=== PATIENT | male | born 1980 | race Two or more races ===

== ENCOUNTER 2020-01-09 09:25 | Emergency (ER) | payer SELFPAY ==
[~2020-01-09] VITALS: Ht 182.9 cm; Wt 70.3 kg
--- NOTE | 2020-01-09 09:25 | NUR ---
ED Nurse Note: PT arrived with RA [id number] due left flank pain starting yesterday. pt states that he has hx of kindey stones. last occurence was last year. pt flank tender to touch no deformities noticed skin intact. pt iv site etablished, patent and intact. pt groaning and presenting with facial grimacing and grabbing site pain 06/01
[2020-01-09 09:27] VITALS: BP 114/74
[2020-01-09] MEDS ORDERED: Ketorolac 30mg Inj IV ONE (09:30)
[2020-01-09] MEDS ORDERED: Morphine Sulfate 4mg/ml Inj (IV USE ONLY) IVP ONE (09:30)
--- NOTE | 2020-01-09 09:30 | NUR ---
ED Nurse Note: Pt states that the he had "dark red blood" come from urine earlier today. pt is unable to urinate at this time. medications administered pain now looks comfortable. offered blankets and dimmed lights samaria pt comfort.
--- NOTE | 2020-01-09 09:45 | NUR ---
ED Nurse Note: Pt reports decreased pain at this time.
--- NOTE | 2020-01-09 09:47 | Emergency Room Report ---
History of Present Illness General Chief Complaint: Back Pain-No Injury Source: Patient, EMS Present Illness HPI 39-year-old male presents to ED with left flank pain. Brought in by EMS from hotel. History of kidney stones. Started today. 10 out of 10, throbbing, nonradiating. Notes nausea and vomiting. Denies fevers or chills. Denies no other aggravating relieving factors. Denies any other associated symptoms Allergies: Coded Allergies: No Known Allergies (Unverified , 01/09/20) COVID-19 Screening Contact w/high risk pt: No Recent Travel to affected area: No Experienced COVID-19 symptoms?: No COVID-19 Testing performed TERRITORY SALES CONSULTANT: No Patient History Past Medical History: none Past Surgical History: none Pertinent Family History: none Social History: Denies: smoking, alcohol use, drug use Immunizations: UTD Reviewed Nursing Documentation: PMH: Agreed; PSxH: Agreed Nursing Documentation-PMH Past Medical History: No History, Except For Review of Systems All Other Systems: negative except mentioned in HPI Physical Exam Vital Signs Date Time Temp Pulse Resp B/P (MAP) Pulse Ox O2 Delivery O2 Flow Rate FiO2 01/09/20 09:20 98.2 82 18 114/74 (87) 99 Room Air Sp02 EP Interpretation: reviewed, normal General Appearance: alert, GCS 15, non-toxic, mild distress Head: normocephalic, atraumatic Eyes: bilateral eye normal inspection, bilateral eye PERRL ENT: hearing grossly normal, normal pharynx, no angioedema, normal voice Neck: full range of motion, supple/symm/no masses Respiratory: chest non-tender, lungs clear, normal breath sounds, speaking full sentences Cardiovascular #1: regular rate, rhythm, no edema Cardiovascular #2: 2+ carotid (R), 2+ carotid (L), 2+ radial (R), 2+ radial (L) , 2+ dorsalis pedis (R), 2+ dorsalis pedis (L) Gastrointestinal: normal bowel sounds, non tender, soft, non-distended, no guarding, no rebound Rectal: deferred Genitourinary: normal inspection, CVA tenderness (L) Musculoskeletal: back normal, normal range of motion, gait/station normal, non- tender Neurologic: alert, motor strength/tone normal, oriented x3, sensory intact, responsive, speech normal Psychiatric: judgement/insight normal, memory normal, mood/affect normal, no suicidal/homicidal ideation Reflexes: 3+ bicep (R), 3+ bicep (L), 3+ tricep (R), 3+ tricep (L), 3+ knee (R) , 3+ knee (L) Skin: no rash Lymphatic: no adenopathy Medical Decision Making Diagnostic Impression: Primary Impression: Kidney stone Additional Impression: UTI (urinary tract infection) Qualified Codes: N10 - Acute pyelonephritis ER Course Hospital Course 39-year-old M presents to ED with L flank pain Differential diagnosis includes-appendicitis, cholecystitis, kidney stone, pyelonephritis Clinical course Patient placed on stretcher. After initial history and physical I ordered labs , IV fluids, pain medications and CT scan Labs - no leukocytosis, electrolytes ok, LFTs normal, UA - hematuria, + bacteria CT scan shows 2 mm stone in L ureter without hydronephrisis/hydroureter Upon reassessment, patient states pain has improved. I discussed findings with patient. Febrile. Nontoxic-appearing. No leukocytosis. No hydronephrosis on CT. Kidney function within normal limits. Given antibiotics here. Will discharge home. States he lives in [place] and has a urologist there. States he will follow- up with him. Safe for discharge and close outpatient follow-up I feel this is a highly complex case requiring extensive working including EKG/ Rhythm strip, Xray/CT/US, Blood/urine lab work, repeat exams while in ED, and administration of strong opiates/narcotics for pain control, admission to hospital or close patient follow up. Diagnosis - kidney stone, UTI Stable and discharged to home with Rx Motrin, Dell, Flomax, zofran, Keflex. Followup with PMD/urology. Return to ED if symptoms recur or worsen Labs Test 01/09/20 09:30 01/09/20 10:57 White Blood Count 5.5 K/UL (4.8-10.8) Red Blood Count 5.75 M/UL (4.70-6.10) Hemoglobin 16.0 G/DL (14.2-18.0) Hematocrit 46.1 % (42.0-52.0) Mean Corpuscular Volume 80 FL (80-99) Mean Corpuscular Hemoglobin 27.7 PG (27.0-31.0) Mean Corpuscular Hemoglobin Concent 34.6 G/DL (32.0-36.0) Red Cell Distribution Width 12.1 % (11.6-14.8) Platelet Count 243 K/UL (150-450) Mean Platelet Volume 4.9 FL (6.5-10.1) Neutrophils (%) (Auto) 66.1 % (45.0-75.0) Lymphocytes (%) (Auto) 23.7 % (20.0-45.0) Monocytes (%) (Auto) 9.0 % (1.0-10.0) Eosinophils (%) (Auto) 0.4 % (0.0-3.0) Basophils (%) (Auto) 0.8 % (0.0-2.0) Sodium Level 140 MMOL/L (136-145) Potassium Level 3.9 MMOL/L (3.5-5.1) Chloride Level 103 MMOL/L (98-107) Carbon Dioxide Level 28 MMOL/L (21-32) Anion Gap 9 mmol/L (5-15) Blood Urea Nitrogen 13 mg/dL (7-18) Creatinine 1.3 MG/DL (0.55-1.30) Estimat Glomerular Filtration Rate > 60 mL/min (>60) Glucose Level 116 MG/DL (74-106) Calcium Level 8.9 MG/DL (8.5-10.1) Total Bilirubin 0.5 MG/DL (0.2-1.0) Aspartate Amino Transf (AST/SGOT) 25 U/L (15-37) Alanine Aminotransferase (ALT/SGPT) 27 U/L (12-78) Alkaline Phosphatase 74 U/L (46-116) Total Protein 8.0 G/DL (6.4-8.2) Albumin 4.0 G/DL (3.4-5.0) Globulin 4.0 g/dL Albumin/Globulin Ratio 1.0 (1.0-2.7) Lipase 126 U/L (73-393) Urine Color Brown Urine Appearance Very cloudy Urine pH 7 (4.5-8.0) Urine Specific [place] 1.020 (1.005-1.035) Urine Protein 3+ (NEGATIVE) Urine Glucose (UA) Negative (NEGATIVE) Urine Ketones 3+ (NEGATIVE) Urine Blood 5+ (NEGATIVE) Urine Nitrite Positive (NEGATIVE) Urine Bilirubin 1+ (NEGATIVE) Urine Ictotest Negative (NEGATIVE) Urine Urobilinogen 4 MG/DL (0.0-1.0) Urine Leukocyte Esterase 3+ (NEGATIVE) Urine RBC Tntc /HPF (0 - 0) Urine WBC Tntc /HPF (0 - 0) Urine Squamous Epithelial Cells Occasional /LPF Urine Bacteria Few /HPF (NONE) CT/MRI/US Diagnostic Results CT/MRI/US Diagnostic Results : Imaging Test Ordered: CT A/P Impression Procedure: CT Abdomen Pelvis WO Contrast EXAM: CT CT Abdomen Pelvis WO Contrast INDICATION: Flank pain. COMPARISON: None TECHNIQUE: Axial images were obtained through the abdomen pelvis without intravenous contrast. Sagittal and coronal reformats are generated. All CT scans at this facility are performed using dose modulation techniques as appropriate to a performed exam including the following: automated exposure control with adjustment of the mA and/or kV according to patient size. RADIATION DOSE: CTDIvol: 5.3 mGy DLP: 291.8 mGy-cm Dose information generated by the CT scanner is available in PACS. FINDINGS: There is minimal dependent atelectasis right lung base. The liver and spleen are homogeneous. Gallbladder is without sludge or stone and there is no wall thickening. The pancreas is unremarkable. Adrenals are normal in morphology. There is slight fullness of the left collecting system. Small bowel loops are nondistended. The colon is also nondistended with average amount of stool. The appendix is not visualized. There is no free fluid or free air. No pathologic adenopathy demonstrated. Urinary bladder is almost empty. In the left hemipelvis on image 139, there is a tiny 2 mm calcific density which lies along the expected course of the distal left ureter. Question possible tiny distal ureteral stone.. There is no suspicious superficial soft tissue or osseous abnormality. IMPRESSION: MILD FULLNESS OF THE LEFT COLLECTING SYSTEM. TINY 2 MM CALCIFIC DENSITY IN THE LEFT HEMIPELVIS POSSIBLY A TINY LEFT DISTAL URETERAL STONE. Last Vital Signs Date Time Temp Pulse Resp B/P (MAP) Pulse Ox O2 Delivery O2 Flow Rate FiO2 01/09/20 09:27 98.2 82 18 114/74 99 Room Air Status: improved Disposition: HOME, SELF-CARE Condition: Stable Scripts Tamsulosin HCl (Flomax) 0.4 Mg Cap.er.24h 0.4 MG ORAL DAILY, #10 CAP Prov: Gregorio Ro MD 01/09/20 Cephalexin* (KEFLEX*) 500 Mg Capsule 500 MG ORAL EVERY 6 HOURS for 7 Days, CAP Prov: Gregorio Ro MD 01/09/20 Ondansetron Odt* (ZOFRAN ODT*) 4 Mg Tab.rapdis 4 MG BC EVERY 6 HOURS PRN for Nausea & Vomiting, #30 TAB 0 Refills Prov: Gregorio Ro MD 01/09/20 Hydrocodone Bit/Acetaminophen 5-325* (NORCO 5-325 TABLET*) 1 Each Tablet 1 TAB ORAL Q6H PRN for FOR PAIN, #10 TAB 0 Refills Prov: Gregorio Ro MD 01/09/20 Ibuprofen* (MOTRIN*) 600 Mg Tablet 600 MG ORAL Q8H PRN for FOR PAIN, #30 TAB 0 Refills Prov: Gregorio Ro MD 01/09/20 Gregorio Ro MD January 09, 2020 09:47
[2020-01-09 09:51] LABS: ANION GAP 9 mmol/L (5-15); BLOOD UREA NITROGEN 13 mg/dL (7-18); CALCIUM 8.9 MG/DL (8.5-10.1); CARBON DIOXIDE 28 MMOL/L (21-32); CHLORIDE 103 MMOL/L (98-107); CREATININE 1.3 MG/DL (0.55-1.30); POTASSIUM 3.9 MMOL/L (3.5-5.1); SODIUM 140 MMOL/L (136-145)
[2020-01-09 09:55] LABS: ALANINE AMINOTRANSFERASE 27 U/L (12-78); ALKALINE PHOSPHATASE 74 U/L (46-116); ASPARTATE AMINO TRANSFERASE 25 U/L (15-37); BILIRUBIN,TOTAL 0.5 MG/DL (0.2-1.0)
--- NOTE | 2020-01-09 09:55 | NUR ---
ED Nurse Note: Pt taken to CT on [facility] with product safety technical assistant
[2020-01-09 09:56] LABS: BASOPHILS % (AUTO) 0.8 % (0.0-2.0); EOSINOPHILS % (AUTO) 0.4 % (0.0-3.0); HEMATOCRIT 46.1 % (42.0-52.0); LYMPHOCYTES % (AUTO) 23.7 % (20.0-45.0); MEAN CORPUSCULAR VOLUME 80 FL (80-99); NEUTROPHILS % (AUTO) 66.1 % (45.0-75.0); PLATELET COUNT 243 K/UL (150-450); RED BLOOD COUNT 5.75 M/UL (4.70-6.10); RED CELL DISTRIBUTION WIDTH 12.1 % (11.6-14.8); WHITE BLOOD COUNT 5.5 K/UL (4.8-10.8)
--- NOTE | 2020-01-09 10:09 | NUR ---
ED Nurse Note: Pt returned from CT
--- NOTE | 2020-01-09 10:24 | NUR ---
ED Nurse Note: Attempted to get urine specimen from pt; unable to obtain urine at this time. pt refuses I&O cath. ERMD aware; per ermd urine not needed.
--- NOTE | 2020-01-09 10:58 | NUR ---
ED Nurse Note: Urine sent to lab.
--- NOTE | 2020-01-09 11:15 | Diagnostic Imaging Report ---
EXAM: CT CT Abdomen Pelvis WO Contrast INDICATION: Flank pain. COMPARISON: None TECHNIQUE: Axial images were obtained through the abdomen pelvis without intravenous contrast. Sagittal and coronal reformats are generated. All CT scans at this facility are performed using dose modulation techniques as appropriate to a performed exam including the following: automated exposure control with adjustment of the mA and/or kV according to patient size. RADIATION DOSE: CTDIvol: 5.3 mGy DLP: 291.8 mGy-cm Dose information generated by the CT scanner is available in PACS. FINDINGS: There is minimal dependent atelectasis right lung base. The liver and spleen are homogeneous. Gallbladder is without sludge or stone and there is no wall thickening. The pancreas is unremarkable. Adrenals are normal in morphology. There is slight fullness of the left collecting system. Small bowel loops are nondistended. The colon is also nondistended with average amount of stool. The appendix is not visualized. There is no free fluid or free air. No pathologic adenopathy demonstrated. Urinary bladder is almost empty. In the left hemipelvis on image 139, there is a tiny 2 mm calcific density which lies along the expected course of the distal left ureter. Question possible tiny distal ureteral stone.. There is no suspicious superficial soft tissue or osseous abnormality. IMPRESSION: MILD FULLNESS OF THE LEFT COLLECTING SYSTEM. TINY 2 MM CALCIFIC DENSITY IN THE LEFT HEMIPELVIS POSSIBLY A TINY LEFT DISTAL URETERAL STONE.
[2020-01-09 11:25] VITALS: BP 115/69
[2020-01-09 11:43] LABS: APPEARANCE,URINE VERY CLOUDY; BILIRUBIN, URINE 1+ (NEGATIVE); COLOR,URINE BROWN; GLUCOSE, URINE (UA) NEGATIVE (NEGATIVE); KETONES,URINE 3+ (NEGATIVE); LEUKOCYTE ESTERASE ,URINE 3+ (NEGATIVE); NITRITE,URINE POSITIVE (NEGATIVE); PH,URINE 7 (4.5-8.0); PROTEIN,URINE 3+ (NEGATIVE); UROBILINOGEN,URINE 4 MG/DL (0.0-1.0)
[2020-01-09] MEDS ORDERED: cefTRIAXone 1 GM in NS 55 ML IVPB ONE (12:00)
[2020-01-09] MEDS ORDERED: NORCO 5-325 TA1 EAC1 ORAL (12:23)
[2020-01-09] MEDS ORDERED: CEPHALEXIN500 MG ORAL (12:23)
[2020-01-09] MEDS ORDERED: ONDANSETRON ODT4 MG BC (12:23)
[2020-01-09] MEDS ORDERED: IBUPROFEN600 M1 ORAL (12:23)
[2020-01-09] MEDS ORDERED: FLOMAX0.4 MG ORAL (12:23)
[2020-01-09 12:41] VITALS: BP 124/75
--- NOTE | 2020-01-09 12:41 | NUR ---
ER DISCHARGE NOTE: Patient is cleared to be discharged per ERMD, pt is aox4, on room air, with stable vital signs. pt was given dc and prescription instructions, pt was able to verbalize understanding, pt id band and iv site removed without complications. pt is able to ambulate with steady gait. pt took all belongings.
== END 2020-01-09 12:41 | disposition home or self-care (01) ==
LOC: EDBD 09:25 → EMR 09:50
DX: N20.0 Calculus of kidney (principal); N10 Acute pyelonephritis; J98.11 Atelectasis
CPT/HCPCS: 36415; 74176; 80053; 81003; 83690; 85025; 87086; 96361; 96365; 96375; 99284; J0696; J1885; J2270; J2405; J7030; S0028